=== PATIENT | female | born 2000 | race Native Hawaiian/Other Pacific Islander ===

== ENCOUNTER 2020-07-28 09:00 | Emergency (ER) | payer SELFPAY ==
[2020-07-28 09:11] VITALS: BP 112/71
[2020-07-28 09:56] LABS: Basophils % (Auto) 0.4 % (0.0-1.8); Eosinophils % (Auto) 0.4 % (0.0-4.3); Hematocrit 44.1 % (30.3-42.9); Hemoglobin 15.1 gm/dl (10.1-14.3); Lymphocytes # (Auto) 2.3 K/mm3 (1.2-5.4); Lymphocytes % (Auto) 24.7 % (13.4-35.0); Mean Corpuscular HGB Conc 34 % (30-34); Mean Corpuscular Volume 87 fl (79-97); Monocytes # (Auto) 0.5 K/mm3 (0.0-0.8); Monocytes % (Auto) 5.7 % (0.0-7.3); Platelet Count 252 K/mm3 (140-440); Red Blood Count 5.06 M/mm3 (3.65-5.03); Red Cell Distribution Width 13.2 % (13.2-15.2)
[2020-07-28] MEDS ORDERED: ONDANSETRON 4 MG ODT TAB PO ONE (10:12)
[2020-07-28 10:14] LABS: Bilirubin,Urine NEG (Negative); Blood,Urine NEG (Negative); Color,Urine Yellow (Yellow); Hyaline Casts,Urine 1 /LPF; Mucus,Urine 3+ /HPF
[2020-07-28 10:17] LABS: Alanine Aminotransferase 14 units/L (7-56); Albumin 3.8 g/dL (3.9-5); Blood Urea Nitrogen 9 mg/dL (7-17); Calcium 8.8 mg/dL (8.4-10.2); Hemolysis Index 10
--- NOTE | 2020-07-28 10:19 | Emergency Department Report ---
HPI - General Chief Complaint: Abdominal Pain Time Seen by Provider: 07/28/20 10:05 - HPI HPI: This is a 20-year-old female presents to the emergency department with a complaint of a 2 to 3-day history of epigastric abdominal pain along with nausea and vomiting. At this point the patient says that she is just vomiting up stomach acid. She has increased pain and nausea with any food or liquids. She tried some Pepto-Bismol for her symptoms without any relief. Patient says that she has a history of GERD and thinks also a history of gastritis. She has a primary care physician but has not seen them regarding her symptoms. No recent travel or sick contacts at home. No known alleviating factors. Currently her pain is 7 out of 10 in intensity. ED Past Medical Hx - Past Medical History Previous Medical History?: Yes Hx GERD: Yes - Surgical History Past Surgical History?: No - Social History Smoking Status: Never Smoker Substance Use Type: Alcohol - Medications Home Medications: Home Medications Medication Instructions Recorded Confirmed Last Taken Type Famotidine [Pepcid] 10 mg PO BID #30 tablet 07/28/20 Unknown Rx Ondansetron [Zofran Odt] 4 mg PO Q8HR PRN #14 tab.rapdis 07/28/20 Unknown Rx ED Review of Systems ROS: Stated complaint: STOMACH PAIN/VOMITTING Other details as noted in HPI Comment: All other systems reviewed and negative Constitutional: denies: chills, fever Eyes: denies: eye pain, vision change ENT: denies: ear pain, throat pain Respiratory: denies: cough, shortness of breath Cardiovascular: denies: chest pain, palpitations Gastrointestinal: abdominal pain, nausea, vomiting Genitourinary: denies: dysuria, discharge Musculoskeletal: denies: back pain, arthralgia Skin: denies: rash, lesions Neurological: denies: headache, weakness Physical Exam - Physical Exam Vital Signs: Vital Signs 07/28/20 09:10 Temperature 98.3 F Pulse Rate 78 Respiratory 18 Rate Blood Pressure 112/71 O2 Sat by Pulse 97 Oximetry Physical Exam: GENERAL: The patient is well-developed well-nourished. HENT: Normocephalic. Atraumatic. Patient has moist mucous membranes. EYES: Extraocular motions are intact. NECK: Supple. Trachea is midline. CHEST/LUNGS: Clear to auscultation. There is no respiratory distress noted. HEART/CARDIOVASCULAR: Regular. There is no tachycardia. There is no murmur. ABDOMEN: Abdomen is soft. Epigastric tenderness to palpation. No guarding. Patient has normal bowel sounds. There is no abdominal distention. SKIN: Skin is warm and dry. NEURO: The patient is awake, alert, and oriented. The patient is cooperative. Normal speech. MUSCULOSKELETAL: There is no tenderness or deformity. There is no limitation range of motion. ED Course Vital Signs 07/28/20 09:10 Temperature 98.3 F Pulse Rate 78 Respiratory 18 Rate Blood Pressure 112/71 O2 Sat by Pulse 97 Oximetry ED Medical Decision Making - Lab Data Result diagrams: 07/28/20 09:35 07/28/20 09:35 Labs 07/28/20 07/28/20 07/28/20 09:35 09:35 09:39 WBC 9.3 RBC 5.06 H Hgb 15.1 H Hct 44.1 H MCV 87 MCH 30 MCHC 34 RDW 13.2 Plt Count 252 Lymph % (Auto) 24.7 [place] % (Auto) 5.7 Eos % (Auto) 0.4 Baso % (Auto) 0.4 Lymph # (Auto) 2.3 [place] # (Auto) 0.5 Eos # (Auto) 0.0 Baso # (Auto) 0.0 Seg Neutrophils % 68.8 Seg Neutrophils # 6.4 Sodium 140 Potassium 3.7 Chloride 104.1 Carbon Dioxide 25 Anion Gap 15 BUN 9 Creatinine 0.7 Estimated GFR > 60 BUN/Creatinine Ratio 13 Glucose 100 Calcium 8.8 Total Bilirubin 0.30 AST 12 ALT 14 Alkaline Phosphatase 65 Total Protein 6.9 Albumin 3.8 L Albumin/Globulin Ratio 1.2 Lipase 36 HCG, Qual Negative Urine Color Urine Turbidity Urine pH Ur Specific [place] Urine Protein Urine Glucose (UA) Urine Ketones Urine Blood Urine Nitrite Urine Bilirubin Urine Urobilinogen Ur Leukocyte Esterase Urine WBC (Auto) Urine RBC (Auto) U Epithel Cells (Auto) Hyaline Casts Urine Mucus 07/28/20 Unknown WBC RBC Hgb Hct MCV MCH MCHC RDW Plt Count Lymph % (Auto) [place] % (Auto) Eos % (Auto) Baso % (Auto) Lymph # (Auto) [place] # (Auto) Eos # (Auto) Baso # (Auto) Seg Neutrophils % Seg Neutrophils # Sodium Potassium Chloride Carbon Dioxide Anion Gap BUN Creatinine Estimated GFR BUN/Creatinine Ratio Glucose Calcium Total Bilirubin AST ALT Alkaline Phosphatase Total Protein Albumin Albumin/Globulin Ratio Lipase HCG, Qual Urine Color Yellow Urine Turbidity Hazy Urine pH 7.0 Ur Specific [place] 1.021 Urine Protein 30 mg/dl Urine Glucose (UA) Neg Urine Ketones 20 Urine Blood Neg Urine Nitrite Neg Urine Bilirubin Neg Urine Urobilinogen 2.0 Ur Leukocyte Esterase Sm Urine WBC (Auto) 6.0 Urine RBC (Auto) 5.0 U Epithel Cells (Auto) 9.0 Hyaline Casts 1 Urine Mucus 3+ - Radiology Data Radiology results: image reviewed interpreted by me: Abdominal x-ray shows increased stool volume. Nonspecific nonobstructive bowel gas. No free air. - Medical Decision Making This patient presents with a few days of some epigastric abdominal pain along with nausea and vomiting. On examination, there is some reproducible epigastric tenderness to palpation but no guarding. The abdomen is soft, nondistended and nontoxic in appearance. Abdominal x-ray shows increased stool volume with nonspecific nonobstructive bowel gas, but no free air. Patient's labs have been unremarkable including CBC, metabolic panel, urinalysis, and the patient is not . She was given a dose of Zofran ODT. She later was able to pass an oral challen ge. Vital signs are reassuring throughout her ED course including being afebrile. For all these reason she appears safe for discharge home at this time. She will be given a prescription for Zofran ODT and outpatient referral for gastroenterology. She will return to the emergency department with any worsening of her symptoms or with any acute distress. Critical Care Time: No Critical care attestation.: If time is entered above; I have spent that time in minutes in the direct care of this critically ill patient, excluding procedure time. ED Disposition Clinical Impression: Epigastric abdominal pain Nausea & vomiting Qualifiers: Vomiting type: unspecified Vomiting Intractability: unspecified Qualified Code (s): R11.2 - Nausea with vomiting, unspecified Disposition: -01 TO HOME OR SELFCARE Is pt being admited?: No Condition: Stable Instructions: Abdominal Pain, Adult, Nausea and Vomiting, Adult, Abdominal Pain (ED) Additional Instructions: Please follow-up with your primary care physician in the next few days. I have given you a referral for a local top cleaner, Dr. Hewitt, to follow-up regarding your abdominal pain and your history of gastritis. I am giving you a prescription for Zofran ODT to be taken for your nausea. I have also given you a prescription for Pepcid to help with any GERD or gastritis. Please try to avoid any alcohol, excessive caffeine, acidic or spicy foods. Return to the emergency department with any worsening of your symptoms, new or concerning symptoms not addressed during this current emergency department visit, or with any acute distress. Prescriptions: Famotidine [Pepcid] 10 mg PO BID #30 tablet Ondansetron [Zofran Odt] 4 mg PO Q8HR PRN #14 tab.rapdis PRN Reason: Nausea Referrals: FILEMON MEJIA MD [Primary Care Provider] - 3-5 Days MEENU HEWITT MD [Staff Physician] - 3-5 Days Forms: Accompanied Note, Work/School Release Form(ED) Time of Disposition: 11:31
[2020-07-28 10:26] LABS: BUN/Creatinine Ratio 13
--- NOTE | 2020-07-28 12:03 | XRay Report ---
ABDOMEN 2 VIEW(S) INDICATION / CLINICAL INFORMATION: Abd pain. COMPARISON: None available. FINDINGS: TUBES / LINES: None. BOWEL GAS PATTERN: Moderate colonic stool. No bowel distention. ADDITIONAL FINDINGS: No significant additional findings. Signer Name: Irving Cisse MD Signed: 07/28/2020 11:59 AM Workstation Name: [id number]
== END 2020-07-28 11:55 | disposition home or self-care (01) ==
LOC: ED 09:00
DX: R10.13 Epigastric pain (principal); R11.2 Nausea with vomiting, unspecified; K21.9 Gastro-esophageal reflux disease without esophagitis; Z79.899 Other long term (current) drug therapy
CPT/HCPCS: 36415; 74019; 80053; 81001; 83690; 84703; 85025; Q0162